=== PATIENT | female | born 2000 | race Caucasian/White ===

== ENCOUNTER 2020-07-18 15:51 | Outpatient (CLI) | payer BC, OTHER, SELFPAY ==
--- NOTE | ~2020-07-18 | XR_ITS ---
XR chest 2V 07/18/2020 16:15 Indication: Acute onset of right chest pain Procedure: 2 view chest Comparison: No prior studies for comparison. Findings: Heart size normal. No focal air space disease, pulmonary edema, pleural effusion or suspect ed pneumothorax. There is dextroscoliosis of the thoracic spine. No acute osseous abnormality. Impression: 1: No acute cardiopulmonary disease. Reviewed, dictated and finalized at location B. Impression: 1: No acute cardiopulmonary disease.
== END 2020-07-18 15:52 | disposition home or self-care (01) ==
LOC: ANHIMG 15:57
PROVIDERS: PCP Pediatrics; Visit Provider Pediatrics
DX: R07.9 Chest pain, unspecified (principal)
CPT/HCPCS: 71046